=== PATIENT | female | born 1945 | race Caucasian/White ===

== ENCOUNTER 2016-10-25 11:58 | Inpatient (IN) | payer MEDICARE ==
[2016-10-25] VITALS (11 sets, daily range): BP systolic 124–144; BP diastolic 55–74; PULSE 85–96; RESP 15–18; TEMP 97.6–99.3; O2SAT 91–99
[~2016-10-25] VITALS: Ht 162.6 cm; Wt 88.7 kg
[2016-10-25 13:02] LABS: WHITE BLOOD COUNT 1.5 TH/MM3 (4.0-11.0)
[2016-10-25 13:09] LABS: MEAN CORPUSCULAR HEMOGLOBIN 30.6 PG (27.0-34.0); RED BLOOD COUNT 2.44 MIL/MM3 (4.00-5.30); RED CELL DISTRIBUTION WIDTH 16.8 % (11.6-17.2)
[2016-10-25 13:10] LABS: AUTOMATED NEUTROPHIL # 0.9 TH/MM3 (1.8-7.7); BASOPHIL % 1.1 % (0.0-2.0); EOSINOPHIL % 0.9 % (0.0-4.0); LYMPH % 29.7 % (9.0-44.0); LYMPHOCYTE # 0.5 TH/MM3 (1.0-4.8); MONO % 5.9 % (0.0-8.0); NEUT % 62.4 % (16.0-70.0)
[2016-10-25 13:13] LABS: HEMO FLAGS AUTO DIFF; PLATELET COUNT 12 TH/MM3 (150-450)
[2016-10-25 13:21] LABS: POTASSIUM 3.6 MEQ/L (3.5-5.1)
[2016-10-25 13:25] LABS: APTT (PATIENT) 25.7 SEC (24.3-30.1); MAGNESIUM 1.7 MG/DL (1.5-2.5); PROTHROMBIN TIME - PATIENT 11.3 SEC (9.8-11.6)
[2016-10-25 13:33] LABS: NEUTROPHIL # MANUAL DIFF 1.1 TH/MM3 (1.8-7.7); POLYS (SEG NEUTROPHILS) 70 % (16-70); WBC DIFF SAMPLE 100
[2016-10-25 13:34] LABS: PLATELET ESTIMATE SMEAR RARE (NORMAL); PLATELET MORPHOLOGY NORMAL (NORMAL); SCAN/DIFF FINAL DIFF MANUAL
[2016-10-25] MEDS ORDERED: SODIUM CHLOR 0.9% 250 ML INJ 250 ML IV ONE (14:30)
[2016-10-25] MEDS ORDERED: MAGNESIUM HYDROXIDE SUSP 30 ML CUP PO PRN (14:45)
[2016-10-25] MEDS ORDERED: ONDANSETRON HCL 4 MG/2 ML VIAL IVP PRN (14:45)
[2016-10-25] MEDS ORDERED: NALOXONE HCL 0.4 MG/ML AMP IV PRN (14:45)
[2016-10-25] MEDS ORDERED: ACETAMINOPHEN 325 MG TAB PO PRN (14:45)
[2016-10-25] MEDS ORDERED: SODIUM CHLORIDE 0.9% FLUSH 10 ML FLUSH IV FLUSH PRN (14:45)
--- NOTE | 2016-10-25 15:08 | PD ---
HPI Chief Complaint: Abnormal Results Time Seen by Provider: 12:57 Travel History International Travel<30 days: No Contact w/Intl Traveler<30days: No Traveled to known affect area: No History of Present Illness HPI 71 y/o female presents with low platelets and was told to come to the emergency room. She states she has history of metastatic lung cancer and last received chemotherapy October 10. She states she's been on chemotherapy since January. She states the cancer has spread to her bones and abdomen. She states before she came down here she had 2 units of blood and 2 things of platelets a couple days ago. She states her last Neulasta shot was about a week and a half ago. She states no current complaints and would not be here she did not have the abnormal blood test results. [place] is [place] from [place]. PFSH Past Medical History Cancer: Yes (lung) Chemotherapy: Yes Past Surgical History Narrative Surgical left knee replacement, port, left arm repair of bony met Social History Alcohol Use: No Tobacco Use: No (quit couple months ago) Substance Use: No Allergies-Medications (Allergen,Severity, Reaction): Coded Allergies: Benazepril (Verified Allergy, Severe, ANGIOEDEMA, 10/25/16) Naprosyn (Verified Allergy, Intermediate, HIVES, 10/25/16) Uncoded Allergies: TAPE (Adverse Reaction, Unknown, 10/25/16) Review of Systems Except as stated in HPI: all other systems reviewed are Neg Physical Exam Narrative GENERAL: Well-nourished, well-developed patient. SKIN: Warm and dry. HEAD: Normocephalic and atraumatic. EYES: No injection or drainage. ENT: No nasal drainage noted. NECK: Supple, trachea midline. CARDIOVASCULAR: Regular rate and rhythm RESPIRATORY: No increased effort. No accessory muscle use. GASTROINTESTINAL: Abdomen soft, non-tender, nondistended. NEUROLOGICAL: Awake and alert. Moves all extremities. Normal speech. Data Data Last Documented VS Vital Signs Date Time Temp Pulse Resp B/P Pulse Ox O2 Delivery O2 Flow Rate FiO2 10/25/16 12:07 98.4 96 15 135/70 99 Orders Magnesium (Mg) (10/25/16 12:39) Phosphorus (Po4) (10/25/16 12:39) Complete Blood Count With Diff (10/25/16 12:39) Basic Metabolic Panel (Bmp) (10/25/16 12:39) Act Partial Throm Time (Ptt) (10/25/16 12:39) Prothrombin Time / Inr (Pt) (10/25/16 12:39) Type And Screen (10/25/16 12:39) Red Blood Cells (Rbc) (10/25/16 14:16) Platelet Pheresis (10/25/16 14:16) Blood Product Administration .UPON TRANSFUSION (10/25/16 14:16) Sodium Chlor 0.9% 250 Ml Inj (Ns 250 Ml (10/25/16 14:30) Admit Order (Ed Use Only) (10/25/16 14:22) Admit To Inpatient (10/25/16 ) Vital Signs (Adult) Q4H (10/25/16 14:40) Activity Oob With Assistance (10/25/16 14:40) Diet Regular Basic (10/25/16 Dinner) Sodium Chloride 0.9% Flush (Ns Flush) (10/25/16 14:45) Sodium Chloride 0.9% Flush (Ns Flush) (10/25/16 21:00) Acetaminophen (Tylenol) (10/25/16 14:45) Ondansetron Inj (Zofran Inj) (10/25/16 14:45) Magnesium Hydroxide Liq (Milk Of Magnesi (10/25/16 14:45) Complete Blood Count With Diff (10/26/16 06:00) Scd Bilateral/Knee High MALCOLM.BID (10/25/16 14:40) Azael Bilateral/Knee High MALCOLM.QSHIFT (10/25/16 14:40) Naloxone Inj (Narcan Inj) (10/25/16 14:45) Inpatient Certification (10/25/16 ) Consult Medical Oncology (10/25/16 ) Labs Laboratory Tests Test 10/25/16 10/25/16 12:46 14:24 White Blood Count 1.5 TH/MM3 Red Blood Count 2.44 MIL/MM3 Hemoglobin 7.5 GM/DL Hematocrit 22.0 % Mean Corpuscular Volume 90.0 FL Mean Corpuscular Hemoglobin 30.6 PG Mean Corpuscular Hemoglobin 34.0 % Concent Red Cell Distribution Width 16.8 % Platelet Count 12 TH/MM3 Mean Platelet Volume 9.5 FL Neutrophils (%) (Auto) 62.4 % Lymphocytes (%) (Auto) 29.7 % Monocytes (%) (Auto) 5.9 % Eosinophils (%) (Auto) 0.9 % Basophils (%) (Auto) 1.1 % Neutrophils # (Auto) 0.9 TH/MM3 Lymphocytes # (Auto) 0.5 TH/MM3 Monocytes # (Auto) 0.1 TH/MM3 Eosinophils # (Auto) 0.0 TH/MM3 Basophils # (Auto) 0.0 TH/MM3 CBC Comment AUTO DIFF Differential Total Cells 100 Counted Neutrophils % (Manual) 70 % Lymphocytes % 26 % Monocytes % 4 % Neutrophils # (Manual) 1.1 TH/MM3 Differential Comment FINAL DIFF MANUAL Platelet Estimate RARE Platelet Morphology Comment NORMAL Prothrombin Time 11.3 SEC Prothromb Time International 1.0 RATIO Ratio Activated Partial 25.7 SEC Thromboplast Time Sodium Level 141 MEQ/L Potassium Level 3.6 MEQ/L Chloride Level 103 MEQ/L Carbon Dioxide Level 30.0 MEQ/L Anion Gap 8 MEQ/L Blood Urea Nitrogen 11 MG/DL Creatinine 0.74 MG/DL Estimat Glomerular Filtration 78 ML/MIN Rate Random Glucose 98 MG/DL Calcium Level 8.3 MG/DL Phosphorus Level 3.3 MG/DL Magnesium Level 1.7 MG/DL Blood Type B POSITIVE Antibody Screen NEGATIVE Blood Bank Comment Crossmatch Leukocyte-Reduced Red Blood Cells MDM Medical Decision Making Medical Screen Exam Complete: Yes Emergency Medical Condition: Yes Medical Record Reviewed: Yes (past history confirmed) Interpretation(s) CBC & BMP Diagram 10/25/16 12:46 Differential Diagnosis Chemotherapy effect, anemia, pancytopenia Narrative Course Ordered blood work in triage to facilitate care and when she was in room and had resulted and was pancytopenic. We'll discuss with oncology Patient agrees to admission for transfusions Physician Communication Physician Communication dr dhillon states to transfuse 2 units of platetlets and blood and will follow Dr. Miller agrees to admission Diagnosis Primary Impression: Pancytopenia due to chemotherapy Admitting Information Admitting Physician Requests: Admit Phyllis Maldonado MD Oct 25, 2016 15:08
--- NOTE | 2016-10-25 17:42 | HHI.HP ---
[facility] Primary Care Physician Non-Staff Admission Diagnosis pancytopenia Diagnoses: (1) Pancytopenia due to chemotherapy Diagnosis: Principal (2) Lung cancer Diagnosis: Principal Chief Complaint: Patient told to come here by her oncologist Travel History International Travel<30 Days: No Contact w/Intl Traveler <30 Da: No Traveled to Known Affected Are: No History of Present Illness 71-year-old female with known history of metastatic lung cancer who is undergoing chemotherapy. Patient is visiting from [place] and is being managed by her oncologist in [place]. Patient had blood work done and her oncologist review the results and was told to go to the emergency department to get transfuse platelets. Patient states that she gets transfuse platelets and RBCs up in [place] whenever they get low. The patient came to [place] for a week in order to visit. She was diagnosed with lung cancer in December 2015 and has been undergoing chemotherapy and treatment since then. The cancer has metastasized to the bone in multiple areas where she had had surgery in her right shoulder. Patient denies any symptoms, Review of Systems Constitutional: DENIES: Diaphoretic episodes, Fatigue, Fever, Weight gain, Weight loss, Chills, Dizziness, Change in appetite, Night Sweats Eyes: DENIES: Blurred vision, Diplopia, Eye inflammation, Eye pain, Vision loss , Double Vision Ears, nose, mouth, throat: DENIES: Vertigo, Nasal discharge, Throat pain, Ear Pain, Running Nose, Sinus Pain Respiratory: DENIES: Apneas, Cough, Snoring, Wheezing, Hemoptysis, Sputum production, Shortness of breath Cardiovascular: DENIES: Chest pain, Palpitations, Syncope, Dyspnea on Exertion , Lower Extremity Edema, Orthopnea Gastrointestinal: DENIES: Abdominal pain, Black stools, Bloody stools, Constipation, Diarrhea, Nausea, Vomiting, Difficulty Swallowing, Anorexia Neurologic: DENIES: Abnormal gait, Headache, Localized weakness, Paresthesias, Seizures, Speech Problems, Tremor, Poor Balance Past Family Social History Past Medical History Metastatic stage IV lung cancer Past Surgical History Left knee replacement Right shoulder repair due to lytic metastatic lesion Allergies: Coded Allergies: Benazepril (Verified Allergy, Severe, ANGIOEDEMA, 10/25/16) Naprosyn (Verified Allergy, Intermediate, HIVES, 10/25/16) Uncoded Allergies: TAPE (Adverse Reaction, Unknown, 10/25/16) Family History Reviewed and significant for family member with breast cancer Social History Reviewed and significant for tobacco use. Patient quit smoking when she was diagnosed with lung cancer in December 2015. Prior to that she smoked up to a pack a cigarettes a day since she was a teenager. Denies any alcohol or illicit drugs Physical Exam Vital Signs Vital Signs Date Time Temp Pulse Resp B/P Pulse Ox O2 Delivery O2 Flow Rate FiO2 10/25/16 17:04 98.3 10/25/16 12:07 98.4 96 15 135/70 99 Physical Exam GENERAL: Well-developed, well-nourished, in no acute distress. alert and orientated HEENT: Head is normocephalic without any lesions or masses noted. Facial features are symmetric. Eyes: Pupils equal round reactive to light. Extraocular muscles are intact. Conjunctivae were clear. Oropharyngeal: Pharynx without any erythema edema. Tongue is midline without deviation. Buccal mucosa is moist without any masses or lesions NECK: Supple without any masses. Trachea midline no deviation. No JVD, no bruits are appreciated CARDIAC: Regular rhythm, regular rate. S1/S2 are heard. No murmurs gallops or rubs. LUNGS: Wheeze noted bilaterally, no rhonchi or rales. No use of accessory muscles on inspiration or expiration. ABDOMEN: Soft, nontender. Nondistended. Bowel sounds heard in all 4 quadrants. No organomegaly or masses. Negative rebound, negative guarding EXTREMITIES: No edema, pulses are equal bilaterally. No cyanosis or clubbing NEUROLOGY: Mood and affect appear appropriate. Cranial nerves II through XII grossly intact. Muscle strength 5/5 in upper and lower extremities bilaterally. Deep tendon reflexes are 2+ in upper and lower extremities bilaterally. Laboratory Laboratory Tests Test 10/25/16 10/25/16 10/25/16 12:46 14:24 14:43 White Blood Count 1.5 Red Blood Count 2.44 Hemoglobin 7.5 Hematocrit 22.0 Mean Corpuscular Volume 90.0 Mean Corpuscular Hemoglobin 30.6 Mean Corpuscular Hemoglobin 34.0 Concent Red Cell Distribution Width 16.8 Platelet Count 12 Mean Platelet Volume 9.5 Neutrophils (%) (Auto) 62.4 Lymphocytes (%) (Auto) 29.7 Monocytes (%) (Auto) 5.9 Eosinophils (%) (Auto) 0.9 Basophils (%) (Auto) 1.1 Neutrophils # (Auto) 0.9 Lymphocytes # (Auto) 0.5 Monocytes # (Auto) 0.1 Eosinophils # (Auto) 0.0 Basophils # (Auto) 0.0 CBC Comment AUTO DIFF Differential Total Cells 100 Counted Neutrophils % (Manual) 70 Lymphocytes % 26 Monocytes % 4 Neutrophils # (Manual) 1.1 Differential Comment FINAL DIFF MANUAL Platelet Estimate RARE Platelet Morphology Comment NORMAL Prothrombin Time 11.3 Prothromb Time International 1.0 Ratio Activated Partial 25.7 Thromboplast Time Sodium Level 141 Potassium Level 3.6 Chloride Level 103 Carbon Dioxide Level 30.0 Anion Gap 8 Blood Urea Nitrogen 11 Creatinine 0.74 Estimat Glomerular Filtration 78 Rate Random Glucose 98 Calcium Level 8.3 Phosphorus Level 3.3 Magnesium Level 1.7 Blood Type B POSITIVE B POSITIVE Antibody Screen NEGATIVE Blood Bank Comment Crossmatch Leukocyte-Reduced Red Blood Cells Result Diagram: 10/25/16 1246 10/25/16 1246 Assessment and Plan Assessment and Plan Pancytopenia secondary to chemotherapy Transfuse packed red blood cells and platelets accordingly Patient with leukopenia, however not neutropenic. Unable to give Neupogen secondary to recent use Monitor CBC Oncology consulted for recommendations. Dr. Rai evaluated the patient and indicated transfusing and he'll be happy to do outpatient labs and transfusion outpatient setting while the patient is still in [place]. Metastatic stage IV lung cancer Patient continue follow-up with her primary oncologist in [place] DVT prevention Patient significant thrombocytopenia Sequential compression devices Written by Boo Hidalgo, acting as scribe for Dr. Miller on 10/25/16 at 17:41. All or portions of this note were transcribed by scribe Boo Hidalgo. I, Dr. Boo Miller personally performed the history, physical exam, and medical decision making; and confirmed the accuracy of the information in the transcribed note. Authenticated by Dr. Boo Miller on 10/25/16 at 18:07. Problem Qualifiers (1) Lung cancer: Boo Hidalgo Oct 25, 2016 17:42 Boo Miller MD Oct 25, 2016 18:07
[2016-10-25] MEDS ORDERED: PROT40TA PO (18:44)
[2016-10-25] MEDS ORDERED: METO5TAB PO (18:44)
[2016-10-25] MEDS ORDERED: LACT10SO PO (18:44)
[2016-10-25] MEDS ORDERED: ALLO100T PO (18:44)
[2016-10-25] MEDS ORDERED: COLA100C3 PO (18:44)
[2016-10-25] MEDS ORDERED: CYMB30CA PO (18:44)
[2016-10-25] MEDS ORDERED: FLUO0.0124 EACH EAR (18:44)
[2016-10-25] MEDS ORDERED: GABA300C5 PO (18:44)
[2016-10-25] MEDS ORDERED: PEGF6P SQ (18:44)
[2016-10-25] MEDS ORDERED: SCOP1PAT2 T-DERMAL (18:44)
[2016-10-25] MEDS ORDERED: METH-759 PO (18:44)
[2016-10-25] MEDS ORDERED: AMOX500T PO (18:44)
[2016-10-25] MEDS ORDERED: GRAN1TAB PO (18:44)
[2016-10-25] MEDS ORDERED: POTA-245 PO (18:44)
[2016-10-25] MEDS ORDERED: MIRA33504 PO (18:44)
[2016-10-25] MEDS ORDERED: IPRASOL INH (18:44)
[2016-10-25] MEDS ORDERED: VITA2000 PO (18:44)
[2016-10-25] MEDS ORDERED: XARE15TA PO (18:44)
[2016-10-25] MEDS ORDERED: ULTR50TA5 PO (18:44)
[2016-10-25] MEDS ORDERED: LEVO.05 PO (18:44)
[2016-10-25] MEDS ORDERED: CALMOIN TOPICAL (18:44)
[2016-10-25] MEDS ORDERED: MAGN400T2 PO (18:44)
[2016-10-25] MEDS ORDERED: MS C30TA PO (18:44)
[2016-10-25] MEDS ORDERED: SYMB80AE INH (18:44)
[2016-10-25] MEDS ORDERED: ZOFR8TAB4 SL (18:44)
[2016-10-25] MEDS ORDERED: PROC10TA PO (18:44)
[2016-10-25] MEDS ORDERED: ONDANSETRON ODT 4 MG TAB SL PRN (19:45)
[2016-10-25] MEDS ORDERED: RESP: ALBUTEROL 2.5 MG/IPRATROPIUM 0.5 MG NEB (PRN) NEB (20:00)
[2016-10-25] MEDS ORDERED: GABAPENTIN 300 MG CAP PO ONE (20:45)
[2016-10-25] MEDS ORDERED: MORPHINE SULFATE 15 MG CONTROLLED RELEASE TAB PO ONE (20:45)
[2016-10-25] MEDS ORDERED: MORPHINE SULFATE 30 MG CONTROLLED RELEASE TAB PO ONE (20:45)
[2016-10-25] MEDS: DOCUSATE SODIUM 100 MG CAP PO SCH (21:00)
[2016-10-25] MEDS: LACTULOSE SYRUP 20 GM/30 ML CUP PO SCH (21:00)
[2016-10-25] MEDS: SODIUM CHLORIDE 0.9% FLUSH 10 ML FLUSH IV FLUSH SCH (21:00)
--- NOTE | 2016-10-25 22:45 | MB ---
cc: SUNITA BONILLA DATE OF 1945 DATE OF CONSULTATION 10/25/2016 REASON FOR CONSULTATION Patient with a history of stage IV lung cancer who presents with of pancytopenia. CHIEF COMPLAINT Generalized weakness. HISTORY OF THE PRESENT ILLNESS Ms. Bowman is a 71-year-old female with a diagnosis of a lung carcinoma. She was diagnosed with lung cancer in December of 2015. She is visiting [place]. Her primary residence is in [facility] near [place]. She follows with an oncologist there. The patient is currently getting systemic chemotherapy. Her last treatment was approximately two weeks ago. She received Neulasta injection after her treatment. She arrived in [place] last Sunday. She had her labs checked and she was found to be severely anemic and thrombocytopenic. She was told to go to the emergency room. She has had blood transfusion and platelet transfusions in the past. On presentation her white blood cell count was 1.5, hemoglobin was 7.5 and platelet count was 12. She has not had any fevers or chills. No cough or congestion. No abdominal pain. No diarrhea. She has not had any nose bleed, gum bleeds, petechiae, bruises, etc. I have been consulted to make recommendations in this patient who is pancytopenic after her chemotherapy. REVIEW OF SYSTEMS A comprehensive 14-point review of systems was completed which is negative except as described in HPI. PAST MEDICAL HISTORY Stage IV lung cancer. PAST SURGICAL HISTORY 1. Left knee replacement. 2. Right shoulder repair due to lytic metastatic lesions. ALLERGIES BENAZEPRILM, NAPROSYN. FAMILY HISTORY Reviewed. There is family history of breast cancer. SOCIAL HISTORY She has more than 40 pack-years of smoking history. She quit 6 months ago. She does not drink alcohol. No illicit drug use. MEDICATIONS 1. Gabapentin 300 mg one tablet p.o. t.i.d. 2. Morphine sulfate sustained release 15 mg p.o. t.i.d. 3. Protonix 40 mg daily. 4. MiraLax 17 grams p.o. daily. 5. Levothyroxine 50 mcg daily. 6. Colace 100 mg p.o. b.i.d. 7. Lactulose 45 mL p.o. b.i.d. 8. DuoNeb q.6 h p.r.n. 9. Zofran 8 mg sublingual p.r.n. q.8h. 10. Tylenol 650 one tablet p.o. q.4h. 11. Milk of magnesia 30 mL q.12h p.r.n. PHYSICAL EXAMINATION VITAL SIGNS: Blood pressure is 135/70, pulse is 90, temperature is 98.4. O2 saturation 99% on room air. GENERAL: Well-developed, well-nourished female in no apparent distress. HEENT: Pupils are equal, round, reactive to light. EOMI. No oral thrush. No oral lesions. NECK: Supple. No JVD, no bruits. No lymphadenopathy. CHEST: The chest is clear to auscultation bilaterally. CARDIOVASCULAR: S1-S2, regular rate and rhythm. No murmur, gallops or rubs. ABDOMEN: Soft, nontender, nondistended. Bowel sounds are present. EXTREMITIES: Without any edema, erythema or cyanosis. SKIN: Without any petechiae, lesion or bruises. NEUROLOGIC: No focal deficits. PSYCHIATRIC: Mood and affect are appropriate. LABORATORY DATA WBC 1.5, hemoglobin 7.5, platelet count is 12. Serum chemistries show sodium of 141, potassium 3.6, chloride 103, CO2 of 30, anion gap 8, BUN 11, creatinine 0.74, phosphorus 3.3, magnesium 1.7. IMAGING None. ASSESSMENT/PLAN This is a 71-year-old female who has a diagnosis of stage IV lung cancer which was diagnosed in December of 2015. She had presented with right shoulder pain. Imaging revealed eroded bone with metastatic disease. She underwent stabilization of the right shoulder. Biopsy confirmed metastatic lung cancer. She has been receiving systemic chemotherapy. She presents to the emergency department with generalized weakness and was found to have: 1. Anemia and thrombocytopenia secondary to chemotherapy. We should transfuse her 2 units of packed red blood cells and 2 units of platelets. After completion of her transfusions she can be discharged from the hospital. She plans on returning to [place] next week. I encouraged her to call my clinic to set up an appointment with me prior to her departure so we can check her labs, we can transfuse blood products in our clinic. 2. Neutropenia. Her ANC is close to 1000. Neutropenic precautions are not needed. We will hold off on giving her any antibiotics at this time. Should she develop a fever of 100.5 or greater we will start her IV cefepime. If patient remains afebrile over the next 24 hours and her white blood cell count does not drop, she will be cleared for discharge. 3. Stage IV lung cancer. The patient will return to [place] to follow up with her primary oncologist for further treatment. Thank you for allowing me to participate in the care of this patient. I will continue to follow this patient along. MD IVETH Flores/KK /9:37 PM /10:21 PM
[2016-10-26] VITALS: BP 134/73; PULSE 92; RESP 18; TEMP 97.9; O2SAT 91
[2016-10-26 00:25] VITALS: BP 134/73; PULSE 92; RESP 18; TEMP 97.9; O2SAT 91
[2016-10-26 00:40] VITALS: BP 149/74; PULSE 93; RESP 18; TEMP 98.1; O2SAT 92
[2016-10-26 02:15] VITALS: BP 148/74; PULSE 91; RESP 19; TEMP 98.1; O2SAT 93
[2016-10-26 04:00] VITALS: BP 147/76; PULSE 92; RESP 20; TEMP 98.7; O2SAT 90
[2016-10-26] MEDS ORDERED: LEVOTHYROXINE SODIUM 50 MCG TAB PO SCH (06:00)
[2016-10-26 07:02] LABS: AUTOMATED NEUTROPHIL # 0.9 TH/MM3 (1.8-7.7); BASOPHIL % 0.5 % (0.0-2.0); EOSINOPHIL % 0.6 % (0.0-4.0); HEMATOCRIT 23.8 % (35.0-46.0); LYMPH % 38.6 % (9.0-44.0); LYMPHOCYTE # 0.6 TH/MM3 (1.0-4.8); MEAN CELL VOLUME 90.7 FL (80.0-100.0); MEAN CORPUSCULAR HEMOGLOBIN 31.4 PG (27.0-34.0); MEAN CORPUSCULAR HGB CONC 34.7 % (32.0-36.0); MONO % 8.2 % (0.0-8.0); NEUT % 52.1 % (16.0-70.0); PLATELET COUNT 56 TH/MM3 (150-450); RED BLOOD COUNT 2.62 MIL/MM3 (4.00-5.30); RED CELL DISTRIBUTION WIDTH 16.4 % (11.6-17.2); WHITE BLOOD COUNT 1.6 TH/MM3 (4.0-11.0)
[2016-10-26 07:19] LABS: HEMO FLAGS AUTO DIFF
[2016-10-26 07:41] LABS: PLATELET ESTIMATE SMEAR LOW (NORMAL); PLATELET MORPHOLOGY NORMAL (NORMAL); SCAN/DIFF AUTO DIFF CONFIRMED
[2016-10-26 08:00] VITALS: BP 161/79; PULSE 101; RESP 19; TEMP 97.3; O2SAT 91
[2016-10-26] MEDS: LACTULOSE SYRUP 20 GM/30 ML CUP PO SCH (08:42)
[2016-10-26] MEDS: DOCUSATE SODIUM 100 MG CAP PO SCH (08:44)
[2016-10-26] MEDS: SODIUM CHLORIDE 0.9% FLUSH 10 ML FLUSH IV FLUSH SCH (08:44)
[2016-10-26] MEDS ORDERED: MORPHINE SULFATE 15 MG CONTROLLED RELEASE TAB PO SCH (09:00)
[2016-10-26] MEDS ORDERED: PANTOPRAZOLE SOD 40 MG DELAYED RELEASE TAB PO SCH (09:00)
[2016-10-26] MEDS ORDERED: POLYETHYLENE GLYCOL 17 GM PKG PO SCH (09:00)
[2016-10-26] MEDS ORDERED: GABAPENTIN 300 MG CAP PO SCH (09:00)
[2016-10-26] MEDS ORDERED: RELISTOR PO SCH (09:00)
[2016-10-26] MEDS ORDERED: MORPHINE SULFATE 30 MG CONTROLLED RELEASE TAB PO SCH (09:00)
--- NOTE | 2016-10-26 11:38 | HHI.PR ---
Subjective Remarks Patient seen and examined today with Dr. Magaña. Patient is doing much better. Patient has been transfused packed red blood cells and platelets. Untoward studies have improved. Counseled patient extensively on outpatient follow-up. Objective Vitals Vital Signs Date Time Temp Pulse Resp B/P Pulse Ox O2 Delivery O2 Flow Rate FiO2 10/26/16 08:00 97.3 101 19 161/79 91 10/26/16 04:00 98.7 92 20 147/76 90 10/26/16 02:15 98.1 91 19 148/74 93 10/26/16 00:40 98.1 93 18 149/74 92 10/26/16 00:25 97.9 92 18 134/73 91 10/26/16 00:00 97.9 92 18 134/73 91 10/25/16 23:15 97.8 94 17 144/72 94 10/25/16 22:50 98.4 90 16 142/67 92 10/25/16 22:35 98.3 92 18 144/68 92 10/25/16 21:00 98.2 93 18 131/71 93 Room Air 10/25/16 20:43 98.5 93 16 124/57 93 Room Air 10/25/16 20:33 98.3 90 16 131/65 92 Room Air 10/25/16 20:28 98.7 92 16 124/66 92 Room Air 10/25/16 20:00 97.6 96 18 130/66 93 10/25/16 18:00 99.3 85 16 127/55 91 10/25/16 17:04 98.3 86 16 135/74 92 10/25/16 12:07 98.4 96 15 135/70 99 I/O 10/25/16 10/25/16 10/25/16 10/26/16 10/26/16 10/26/16 07:00 15:00 23:00 07:00 15:00 23:00 Intake Total 250 ml 526 ml Balance 250 ml 526 ml Intake Oral 60 ml IV Total 250 ml 122 ml Packed Cells 344 ml # Voids 1 # Bowel Movements 0 Result Diagram: 10/26/16 0555 10/25/16 1246 Objective Remarks GENERAL: Well-developed, well-nourished, in no acute distress. alert and orientated HEENT: Head is normocephalic without any lesions or masses noted. Facial features are symmetric. Eyes: Extraocular muscles are intact. Conjunctivae were clear. NECK: Supple without any masses. Trachea midline no deviation. No JVD, CARDIAC: Regular rhythm, regular rate. S1/S2 are heard. No murmurs gallops or rubs. LUNGS: Wheeze noted bilaterally, no rhonchi or rales. No use of accessory muscles on inspiration or expiration. ABDOMEN: Soft, nontender. Nondistended. Bowel sounds heard in all 4 quadrants. No organomegaly or masses. Negative rebound, negative guarding EXTREMITIES: No edema, pulses are equal bilaterally. No cyanosis or clubbing NEUROLOGY: Mood and affect appear appropriate. Cranial nerves II through XII grossly intact. Moving all extremities, speech is clear Urinary Catheter: No Vascular Central Line Catheter: No A/P Assessment and Plan Pancytopenia secondary to chemotherapy Status post transfusion of packed red blood cells and platelets Patient with leukopenia, however not neutropenic. Unable to give Neupogen secondary to recent use Monitor CBC Oncology consulted for recommendations. Dr. Rai evaluated the patient and indicated transfusing and he'll be happy to do outpatient labs and transfusion outpatient setting while the patient is still in [place]. Metastatic stage IV lung cancer Patient continue follow-up with her primary oncologist in [place] DVT prevention Patient significant thrombocytopenia Sequential compression devices Written by Boo Hidalgo PA-C, acting as scribe for Dr. Magaña on 10/26/16 at 1115. The documentation accurately reflects the work and decisions performed face-to- face by Dr. Magaña on 06/28/17 at 11:15. Discharge Planning Discharge home in stable condition Activity: Ad renetta. Diet: Regular diet Medications per medication reconciliation Follow-up primary medical doctor in one week. Patient given prescription for outpatient laboratory studies to be followed up by Boo Haywood Oct 26, 2016 11:38
--- NOTE | 2016-10-26 11:40 | HHI.DCPOC ---
Discharge Care Plan Diagnosis: (1) Pancytopenia due to chemotherapy (2) Lung cancer Goals to Promote Your Health * To prevent worsening of your condition and complications * To maintain your health at the optimal level Directions to Meet Your Goals Take your medications as prescribed Follow your dietary instruction Follow activity as directed Keep your appointments as scheduled Take your immunizations and boosters as scheduled If your symptoms worsen call your PCP, if no PCP go to Urgent Care Center or Emergency Room Smoking is Dangerous to Your Health. Avoid second hand smoke Call the 24-hour hour crisis hotline for domestic abuse at Boo Hidalgo Oct 26, 2016 11:40
== END 2016-10-26 12:06 | disposition home or self-care (01) | DRG 809 ==
LOC: PHED 11:58 → PHEDA 14:23 → PHEDH 18:23 → PH3B 21:35
PROVIDERS: ADMIT Family Medicine; ATTEND Family Medicine
PROC: 30233R1 Transfusion of Nonautologous Platelets into Peripheral Vein, Percutaneous Approach (ICD-10-PCS; principal; 2016-10-25)
PROC: 30233N1 Transfusion of Nonautologous Red Blood Cells into Peripheral Vein, Percutaneous Approach (ICD-10-PCS; 2016-10-25)
DX: D61.810 Antineoplastic chemotherapy induced pancytopenia (principal); C34.90 Malignant neoplasm of unspecified part of unspecified bronchus or lung; C79.51 Secondary malignant neoplasm of bone; T45.1X5A Adverse effect of antineoplastic and immunosuppressive drugs, initial encounter; Z87.891 Personal history of nicotine dependence
CPT/HCPCS: 36430; 80048; 83735; 84100; 85007; 85025; 85027; 85610; 85730; 86850; 86900; 86901; 86920; 99284; J7050; P9016; P9035